=== PATIENT | male | born 1970 | race Caucasian/White ===

== ENCOUNTER 2024-07-21 03:46 | Day surgery (SDC) | payer OTHER, SELFPAY ==
[2024-06-29 11:00] VITALS: BMI 46.7
--- NOTE | 2024-07-21 08:14 | P.PNAN_ITS ---
Anes - Initial Pre Proc Eval Procedure: Operation Date: 07/21/24 10:00 Proposed Procedures p Screening Colonoscopy - Billy Canas MD Date/Time: 07/21/24 08:14 Surgeon: Billy Canas MD Pre Op Diagnosis: neoplasm screening Patient Data Age: 54 Gender: M Height: 1.78 m Weight: 147.7 kg Allergies Allergy/AdvReac Type Severity Reaction Status Date / Time No Known Allergies Allergy Unknown Verified 07/21/24 08:39 Home Medications Medication Instructions Recorded Confirmed Type albuterol sulfate 90 mcg/actuation 1 puff inhalation DAILY PRN asthma 06/29/24 07/21/24 History aerosol inhaler amlodipine 10 mg tablet 10 mg PO DAILY 06/29/24 07/21/24 History cetirizine 5 mg tablet 5 mg PO DAILY 06/29/24 07/21/24 History Patient hx anesthesia problems: none Family hx anesthesia problems: none Results Review: All pre-operative results and documents have been reviewed as part of the pre- operative evaluation. [facility] Past Medical History Medical History (Updated 07/21/24 @ 08:14 by Daniel Sanches DO) Asthma Hypertension Family History Family History (Updated 06/18/11 @ 15:18 by DOCTOR UNKNOWN) Other Diabetes mellitus Family history of arthritis Hypertension Social History Social History Smoking status: Never smoker Alcohol intake: current Substance use type: does not use Living arrangements: with family Spiritual care concerns: No Anes - Eval Final PreProcedure Day of Procedure 07/21/24 08:14 Patient weight: morbidly obese Heart: regular rate and rhythm Lungs: clear to auscultation Airway: Mallampati scale class II Neurological: alert and oriented Last oral intake: >/= 8 hours ASA classification: III Emergent: no Anesthetic plan: proceed Anesthesia type and monitoring: general GIVS and standard monitoring Results Review: All pre-operative results and documents have been reviewed as part of the pre- operative evaluation. Informed Consent: The patient's anesthetic plan and its attendant risks and benefits were discussed with the patient/family/POA. Questions were solicited and answers provided to the satisfaction of the patient/family/POA.
[2024-07-21 08:40] VITALS: BP 148/95; PULSE 83; RESP 18; TEMP 36.6; O2SAT 98
[2024-07-21] MEDS: LACTATED RINGERS 1,000 ML 150 ML IV CONT (08:46)
--- NOTE | 2024-07-21 09:04 | PM.HPGS ---
History of Present Illness History of Present Illness Consent: Risks, benefits, and alternatives have been discussed and questions answered. Patient agrees to proceed with procedure. Chief complaint: neoplasm screening Narrative: Efrain Segundo is a 54 year old male here for first screening colonoscopy Review of Systems Review of Systems: All systems reviewed & are unremarkable except as noted in HPI and below PMFSH Past Medical History Medical History (Updated 07/21/24 @ 09:05 by Billy Canas MD) Asthma Colon cancer screening Hypertension Family History Family History (Updated 06/18/11 @ 15:18 by DOCTOR UNKNOWN) Other Diabetes mellitus Family history of arthritis Hypertension Social History Social History Smoking status: Never smoker Alcohol intake: current Substance use type: does not use Living arrangements: with family Spiritual care concerns: No Meds Home Medications and Allergies Home Medications Medication Instructions Recorded Confirmed Type albuterol sulfate 90 mcg/actuation 1 puff inhalation DAILY PRN asthma 06/29/24 07/21/24 History aerosol inhaler amlodipine 10 mg tablet 10 mg PO DAILY 06/29/24 07/21/24 History cetirizine 5 mg tablet 5 mg PO DAILY 06/29/24 07/21/24 History Allergies Allergy/AdvReac Type Severity Reaction Status Date / Time No Known Allergies Allergy Unknown Verified 07/21/24 08:39 Vital Signs Vital Signs - 24 hr 07/21/24 08:40 Temperature 97.9 F Pulse Rate 83 Respiratory Rate 18 Blood Pressure 148/95 H Pulse Oximetry 98 Oxygen Delivery Room Air Exam Const: General: comfortable and no acute distress HENMT: Face/Nose/Sinus: Normal nares present Eyes: General: appearance normal, both eyes and all related structures Neck: Neck: no JVD Resp: Auscultation: clear to auscultation bilaterally Cardio: Rate: regular rate Rhythm: regular rhythm GI: Inspection: non-distended GI Palp: Yes Soft to palpation Skin: General skin exam: normal color Neuro: General: gait normal Speech: normal speech Extrem: General: normal to inspection Psych: Mental Status: mental status grossly normal Assessment and Plan Assessment and plan (1) Colon cancer screening: Code(s): Z12.11 - Encounter for screening for malignant neoplasm of colon Status: Acute Assessment and Plan: colonoscopy
[2024-07-21 09:28] VITALS: BP 118/82; PULSE 77; RESP 22; O2SAT 97
[2024-07-21 09:38] VITALS: BP 129/79; PULSE 80; RESP 27; O2SAT 97
[2024-07-21 09:48] VITALS: BP 140/95; PULSE 84; RESP 25; O2SAT 98
== END 2024-07-21 09:54 | disposition home or self-care (01) ==
PROVIDERS: PCP Family Medicine; Visit Provider Internal Medicine Gastroenterology
PROC: 0DJD8ZZ Inspection of Lower Intestinal Tract, Via Natural or Artificial Opening Endoscopic (ICD-10-PCS; CPT 45378; principal; 2024-07-21 10:00)
DX: Z12.11 Encounter for screening for malignant neoplasm of colon (principal); D12.4 Benign neoplasm of descending colon; K64.8 Other hemorrhoids; J45.909 Unspecified asthma, uncomplicated; I10 Essential (primary) hypertension; Z79.51 Long term (current) use of inhaled steroids; E66.01 Morbid (severe) obesity due to excess calories; Z68.42 Body mass index [BMI] 45.0-49.9, adult
CPT/HCPCS: 45385; 88305; J2704; J7120

== ENCOUNTER 2025-09-04 18:29 | Emergency (ER) | payer OTHER, SELFPAY ==
[2025-09-04 18:31] VITALS: BP 183/104; PULSE 75; RESP 18; TEMP 36.5; O2SAT 99
--- NOTE | 2025-09-04 19:28 | PC.NURSE ---
Pt called multiple times with no answer.
== END 2025-09-04 19:00 | disposition left against medical advice (07) ==
LOC: ANHED 19:30
PROVIDERS: PCP Family Medicine
DX: R50.9 Fever, unspecified (principal)
CPT/HCPCS: 99199